=== PATIENT | male | born 1990 | race Caucasian/White ===

== ENCOUNTER 2024-11-06 08:37 | Emergency (ER) | payer OTHER, SELFPAY ==
[2024-11-06 08:39] VITALS: BP 175/86; PULSE 69; RESP 16; TEMP 36.6; O2SAT 99; BMI 34.0
--- NOTE | 2024-11-06 08:53 | PC.NURSE ---
Dr. Thayer at bedside
--- NOTE | 2024-11-06 09:14 | HMH.EDGENADL ---
Discharge Plan Disposition Patient Disposition: Home, Self-Care Chief Complaint: Headache Prescriptions Prescriptions: No Action testosterone cypionate 200 mg/mL oil 200 mg IM WEEKLY Patient Comments: ADMINISTER 1 ML IN THE MUSCLE EVERY WEEK losartan 100 mg tablet 100 mg PO DAILY Patient Comments: TAKE 1 TABLET BY MOUTH EVERY DAY hydrochlorothiazide 12.5 mg tablet 12.5 mg PO DAILY Patient Comments: TAKE 1 TABLET BY MOUTH EVERY DAY Referrals Follow up/Referrals: Paulette Miller [Primary Care Provider] - See instructions Activity Restrictions/Add. Instructions Additional Instructions/Restrictions: Call your family doctor to establish care for this visit to the emergency department and schedule follow-up within 48 hours to ensure improvement. If you have any worsening of your condition or any other concerning signs or symptoms, return to the emergency department or your primary care doctor for further evaluation. Take Tylenol 1000 mg every 6 hours (4 times daily) and ibuprofen 400 mg every 6 hours (4 times daily) as needed with food and water to prevent GI upset and kidney damage. Clinical Impressions Clinical Impression: Migraine headache Print Language Print Language: Spanish Discharge ED Provider: Tony Thayer General Adult HPI General Chief complaint: Headache Stated complaint: migraine 4days w/nausea & auras Time Seen by Provider: 11/06/24 08:48 Mode of Arrival: Family Vehicle Source of Information: Patient and Medical Record Description of Symptoms (Recalled from ER Triage Doc. by RN): Pt c/o migraine for 4 days. Denies any hx of migraines. Denies any injury or falls recently. He has been taking Excedrine and has helped some . Reports the pain is from his bilateral temples to bilateral upper jaw/teeth. Reports mild nausea, dizziness, and occasional tunnel vision . He does have a hx of HTN. History of Present Illness HPI narrative: Please note that above description of symptoms, in this electronic medical record under categorization of recalled from ER triage doctor by RN are reflective of an initial nursing assessment, however, is not reflective of my full history and physical exam that was personally taken and clarified. Consequentially, this preceding description of symptoms, which may include the patient's categorized chief complaint in the EMR, do not reflect my personal clinical impression, and the ultimate description of history of present illness and patient stated complaints should be deferred to this section of the note. Unless stated otherwise or congruent with this section of the note, additional signs, symptoms, or incongruence should be interpreted as inaccurate with my clinical impression. Related Data Home Medications ?Medication ?Instructions ?Recorded ?Confirmed hydrochlorothiazide 12.5 mg tablet 12.5 mg PO DAILY 11/06/24 11/06/24 losartan 100 mg tablet 100 mg PO DAILY 11/06/24 11/06/24 testosterone cypionate 200 mg/mL 200 mg IM WEEKLY 11/06/24 11/06/24 intramuscular oil Allergies Allergy/AdvReac Type Severity Reaction Status Date / Time levofloxacin (From Levaquin) Allergy Severe Anaphylaxis Verified 11/06/24 08:51 [facility] Disclaimer: The information contained in this section may have been updated after the patient was seen, as this information can be updated by other users. Medical History (Updated 11/06/24 @ 11:06 by Tony Thayer MD) HTN (hypertension) Surgical History (Updated 11/06/24 @ 10:21 by Kelly Jean RN) History of knee surgery H/O vasectomy Social History Smoking Status: Never smoker alcohol intake: never current occupational status: employed Travel in the last 8 weeks: None Have you lived/traveled outside [place] in past 30 days?: No Contact w/someone who lives/traveled outside [place] past 30 days?: No Exposure to someone with infectious disease in past 14 days?: No Do you have a fever (greater than 100.4 F or 38 C)?: No Have you tested positive for COVID-19: No Exposed to someone with COVID-19 in past 14 days?: No Do you have a sore throat?: No Do you have a cough?: No Do you have any weakness?: No Do you have any diarrhea?: No Are you experiencing any unusual bleeding?: No Do you have any muscle aches/pain?: No Do you have any abdominal pain?: No Are you experiencing loss of taste or smell?: No ROS Obtained: Yes All systems reviewed & no additional complaints except as documented Physical Exam General General appearance: alert Head Head exam: atraumatic and normocephalic Eye Eye exam: Present normal appearance, PERRL and EOMI Neck Neck exam: Present normal inspection, full ROM and trachea midline Respiratory Respiratory exam: Absent respiratory distress, wheezes, stridor, accessory muscle use or prolonged expiratory phase Cardiovascular Cardiovascular exam: Present other (Pulses equal symmetric in upper and lower extremities) Abdominal Exam Abdominal exam: Present soft; Absent distention, tenderness or pulsatile mass Extremities Exam Extremities exam: Absent edema Neurological Exam Neurological exam: Present alert, oriented X3 and CN II-XII intact; Absent motor sensory deficit Skin Skin exam: Present warm and dry; Absent diaphoresis or erythema Medical Decision Making Medical Records Medical records reviewed: Yes I reviewed the patient's medical records. Screening: Per USPSTF and CDC recommendations, given the prevalence of disease in our region, it is our hospital?s policy to screen for HIV and viral Hepatitis for all patients aged 18 and over and those with ongoing risk factors. Behzad Inquiry Pt receiving controlled substance: No Behzad was queried for this patient: No Vital Signs: 11/06/24 08:39 11/06/24 09:51 11/06/24 10:00 Temperature 97.9 F Temperature Source Oral Pulse Rate 69 65 Pulse Rate [Right] 69 Respiratory Rate 16 Blood Pressure 122/80 126/82 Blood Pressure [Right Arm] 175/86 H Blood Pressure Mean [Right Arm] 115 Blood Pressure Source [Right Arm] Automatic Cuff 02 Sat by Pulse Oximetry 99 98 97 Oxygen Delivery Method Room Air Room Air Room Air Orders (Tests/Meds): ED MEDICATIONS Discontinued Medications Generic Name Dose Route Start Last Admin Trade Name Freq PRN Reason Stop Dose Admin Acetaminophen 1,000 mg 11/06/24 08:55 11/06/24 09:25 Acetaminophen 500mg Tab PO 11/06/24 08:56 1,000 mg ONCE ONE Administration Dexamethasone 10 mg 11/06/24 08:55 11/06/24 09:25 Dexamethasone 4mg Tablet PO 11/06/24 08:56 10 mg ONCE ONE Administration Diphenhydramine HCl 25 mg 11/06/24 08:55 11/06/24 09:25 Diphenhydramine 50mg/Ml Vial IV 11/06/24 08:56 25 mg ONCE ONE Administration Lactated Ringer's 1,000 mls @ 999 mls/hr 11/06/24 08:55 11/06/24 09:25 Lactated Ringer's 1000 Ml Bag IV 11/06/24 09:55 999 mls/hr .Q1H1M ONE Administration Ketorolac Tromethamine 15 mg 11/06/24 08:55 11/06/24 09:25 Ketorolac 30mg/Ml Vial IV 11/06/24 08:56 15 mg ONCE ONE Administration Prochlorperazine Edisylate 10 mg 11/06/24 08:55 11/06/24 09:26 Prochlorperazine 10mg/2ml Vial IV 11/06/24 08:56 10 mg ONCE ONE Administration Medical Decision Narrative: 34-year-old male presenting with headache. States that he has been having headache for about 4 days. States that it started as a general tension headache in the front of his forehead at both temples, reached its maximal intensity yesterday, 3/3 around 3 PM. States that it felt as if it was radiating down to his upper teeth at that point. No vision changes, but he is photophobic. No fevers or chills, neck stiffness, vomiting, it is not positional and Excedrin seems to make it better. Came in for further evaluation. History was obtained via conversation with patient. On arrival, patient hemodynamically stable, alert, oriented x4, appropriate, GCS 15, moving all extremities spontaneously, pupils equal and reactive to light. Full physical exam performed and significant for very clinically well-appearing male no acute distress. Speaking in full sentences. He is grossly neurologically intact. Differential includes tension headache, migraine, sinusitis, less likely be intracranial mass, intracranial bleed, among others. Patient placed on continuous cardiac monitoring and continuous pulse ox with initial blood pressure 175/86, heart rate 69, saturation 99% on room air. Patient given migraine cocktail. Patient was placed in observation beginning at 9 AM in order to give meds, reassess and determine need for admission versus home-going. The patient was provided migraine cocktail, fluids while awaiting results. On reevaluation, patient states his headache is nearly gone, he is unable to notice that. At this time, I feel patient is appropriate for discharge. Total observation time 2 hours. Given patient presentation, workup, history, this most likely represents migraine headache versus tension headache. CT head was considered, not deemed necessary. Patient has no neurologic deficits, clinically improved after conservative management with IV meds and fluids. Because patient at baseline without signs or symptoms of clinical decompensation, deemed appropriate for discharge. I discussed my clinical impression with patient and answered all questions. At this time, the evidence for any other entities in the differential is insufficient to warrant any further testing or ED observation. This was explained as well. Advisory was given that persistent or worsening symptoms require further evaluation. I confirmed the understanding of this discussion. Rail Gang Supervisor disclaimer Much of this encounter note is an electronic supervisory investigative specialist spoken language to printed text. Electronic supervisory investigative specialist of the spoken language may permit errors. Although I have reviewed the note, some errors may still exist. Critical Care Critical Care Time Critical Care Time: No
[2024-11-06] MEDS: LACTATED RINGERS 1000ML 1,000 ML 999 ML IV (09:25)
[2024-11-06] MEDS: diphenhydrAMINE 50MG/ML VIAL 25 MG IV (09:25)
[2024-11-06] MEDS: DEXAMETHASONE 4MG TABLET 10 MG PO (09:25)
[2024-11-06] MEDS: KETOROLAC 30MG/ML VIAL 15 MG IV (09:25)
[2024-11-06] MEDS: ACETAMINOPHEN 500MG TAB 1000 MG PO (09:25)
[2024-11-06] MEDS: PROCHLORPERAZINE 10MG/2ML VIAL 10 MG IV (09:26)
[2024-11-06 09:51] VITALS: BP 122/80; PULSE 69; O2SAT 98
[2024-11-06 10:00] VITALS: BP 126/82; PULSE 65; O2SAT 97
--- NOTE | 2024-11-06 10:53 | PC.NURSE ---
Dr Thayer at bedside
[2024-11-06 11:18] VITALS: BP 108/74; PULSE 51; RESP 16; TEMP 36.9; O2SAT 99
== END 2024-11-06 11:19 | disposition home or self-care (01) ==
PROVIDERS: Emergency Provider Emergency Medicine; PCP Family Medicine
DX: G43.909 Migraine, unspecified, not intractable, without status migrainosus (principal); R42 Dizziness and giddiness; R11.0 Nausea; H53.483 Generalized contraction of visual field, bilateral
CPT/HCPCS: 96361; 96374; 96375; 99284; J0780; J1200; J1885; J7120; J8540